=== PATIENT | female | born 1970 | race Caucasian/White ===

== ENCOUNTER 2023-04-20 10:24 | Emergency (ER) | payer BC, OTHER ==
[2023-04-20 10:44] VITALS: TEMP 97.9; BMI 26.9
[2023-04-20] MEDS ORDERED: MECLIZINE HCL 25 MG TABLET (FP) PO ONE (11:18)
[2023-04-20] MEDS ORDERED: MECLIZINE HCL 25 MG TABLET (FP) ONE (11:22)
[2023-04-20 12:05] LABS: BASO % 0.6 % (0-2.0); HEMATOCRIT 41.1 % (32.4-45.2); HEMOGLOBIN 13.6 GM/dL (10.7-15.3); LYMPH % 29.9 % (8-40); MCH 27.9 pg (25.7-33.7); MCHC 33.1 g/dl (32.0-36.0); MEAN CELL VOLUME 84.1 fl (80-96); MEAN PLT VOLUME 8.7 fl (7.5-11.1); MONO % 10.3 % (3.8-10.2); NEUT % 56.2 % (42.8-82.8); PLATELET COUNT 255 10^3/uL (134-434); RBC 4.89 M/mm3 (3.60-5.2); WHITE BLOOD COUNT 4.9 K/mm3 (4.0-10.0)
[2023-04-20 12:15] LABS: EPI CELLS 9 /uL (0-25.1); HYALINE CASTS 0 /uL (0-3.1); URINE APPEARANCE CLEAR; URINE BACTERIA 11 /uL (0-1359); URINE BILIRUBIN NEGATIVE (NEGATIVE); URINE COLOR YELLOW; URINE GLUCOSE (UA) NEGATIVE (NEGATIVE); URINE KETONE NEGATIVE (NEGATIVE); URINE LEUK ESTERASE 1+ (NEGATIVE); URINE NITRITE NEGATIVE (NEGATIVE); URINE PROTEIN NEGATIVE (NEGATIVE); URINE RBC 20 /uL (0-23.9); URINE UROBILINOGEN 0.2 mg/dL (0.2-1.0); URINE WBC 28 /uL (0-25.8)
[2023-04-20 12:36] LABS: POTASSIUM 4.6 mmol/L (3.5-5.1)
[2023-04-20 12:38] LABS: ALBUMIN 3.8 g/dl (3.4-5.0); CALCIUM 9.1 mg/dL (8.5-10.1)
[2023-04-20 12:39] LABS: BLOOD UREA NITROGEN 13.4 mg/dL (7-18); MAGNESIUM 1.7 mg/dL (1.8-2.4)
[2023-04-20 12:42] LABS: CREATININE 0.7 mg/dL (0.55-1.3)
[2023-04-20 12:43] LABS: BILIRUBIN,TOTAL 0.2 mg/dL (0.2-1); TOT PROT 6.8 g/dl (6.4-8.2)
[2023-04-20] MEDS ORDERED: diazePAM 2 MG TABLET PO ONE (12:46)
[2023-04-20] MEDS ORDERED: diazePAM 2 MG TABLET ONE (12:50)
[2023-04-20 16:08] VITALS: BP 144/90; PULSE 82; RESP 20
== END 2023-04-20 16:08 | disposition home or self-care (01) ==
LOC: JER 10:24
DX: R42 Dizziness and giddiness (principal); R26.2 Difficulty in walking, not elsewhere classified; Z86.39 Personal history of other endocrine, nutritional and metabolic disease; Z20.822 Contact with and (suspected) exposure to COVID-19
CPT/HCPCS: 0241U-QW; 36415; 70450-TC; 70551-TC; 80053; 81003; 82962; 83735; 84703; 85025; 93005; 93010; 99285-25